=== PATIENT | female | born 1985 | race American Indian/Alaskan Native ===

== ENCOUNTER 2017-07-01 08:14 | Emergency (ER) | payer MEDICAID ==
[2017-05-15 07:47] VITALS: BMI 23.9
[2017-07-01] MEDS ORDERED: Lactated Ringer's 1,000 ML IV SCH (09:00)
--- NOTE | 2017-07-01 09:01 | OBHP ---
Datetime: 07/01/2017 08:55 IP Adm Impression: , intrauterine IP Chief Complaint Other: c/o gush of fluid yesterday and blood on urinattion at 4 am IP Admit Plan: Observation/Evaluation Admit Comment, IP Provider: at 25+weeks came with c/o gush of fluid yesterday afyternoon and bl ood seen on urination x 2 at 4 am and 7 am. c/o pelvic pressure and crampoing. no vb now, +fm, no ctx s. obhx 3 x pmh den med pnv all nda psh scoliosisis soch den sse neg nitraz, neg pooling yellowish whistish disc a/p at 25=weeks r/o uti r/o placental abruption r/oppprom npo/ivf labs ob sono cont popeye and efm cont close observ Pelvic Type - PN: Adequate Extremities - PN: Normal Abdomen - PN: Normal Back - PN: Normal Breast - PN: Not Done Lungs - PN: Normal Heart - PN: Normal Thyroid - PN: Not Done Neurologic - PN: Normal HEENT - PN: Normal General - PN: Normal FHR - Baseline A Provider: 150 Contraction Comments Provider: none Comments, ACOG Physical Exam: gravid,non ten ext no edema,no calf ten sse no fluid,neg nitrzine ve closed EGA AdmitDate IP: 25.4 Vital Signs Provider: Reviewed; Within Normal Limits IP Chief Complaint: Vaginal bleeding NICHD Variability Prov Fetus A: Moderate 6-25bpm NICHD Accel Fetus A IP Provider: 10X10 FHR Category Provider Fetus A: Category I Genitourinary Exam: Normal DTRs - PN: Normal
[2017-07-01 09:26] LABS: HEMATOCRIT 31.2 % (34.0-47.0); MEAN CELL VOLUME 78.8 fL (81.0-99.0); MEAN CORPUSCULAR HEMOGLOBIN 25.6 pg (27.0-31.0); MEAN CORPUSCULAR HGB CONC 32.5 g/dL (33.0-37.0); MEAN PLATELET VOLUME 9.5 fL (7.2-11.7); RED CELL DISTRIBUTION WIDTH 17.8 % (11.5-14.5); WHITE BLOOD COUNT 10.3 K/uL (4.8-10.8)
[2017-07-01 09:38] LABS: RBC URINE < 1 /hpf (0-3); URINE BILIRUBIN NEGATIVE (NEGATIVE); URINE BLOOD NEGATIVE (NEGATIVE); URINE COLOR Yellow (YELLOW); URINE GLUCOSE (UA) NORMAL (Normal); URINE KETONE NEGATIVE (NEGATIVE); URINE LEUKOCYTE ESTERASE 1+ Leu/uL (Negative); URINE PROTEIN NEGATIVE (NEGATIVE); URINE UROBILINOGEN NORMAL mg/dL (0.2-1.0)
[2017-07-01 09:41] LABS: INR 0.9
[2017-07-01 09:45] LABS: WBC URINE 3 /hpf (0-5)
--- NOTE | 2017-07-01 10:23 | US ---
OB , limited Indication: Rule out ROM, rule out placental abruption Comparison: None available Technique: Real-time ultrasound was performed through the pelvis. Findings: There is a single living fetus in cephalic presentation. Anterior placenta. The placenta is not previa. There are no adnexal masses or cysts evident. Limited visualization of the cervix with length approximately 3.1 cm. Limited visualized anatomy with. Measurements and calculations: Fetus has a composite sonographic age of 24 weeks 0 days. This calculation is based on the biparietal diameter, head circumference, abdominal circumference, and femur length. Estimated heart rate 150.2 beats per min. Impression: Single living fetus with a composite sonographic age of 24 weeks 0 days. Estimated heart rate 150.2 beats per min.
--- NOTE | 2017-07-01 10:43 | OBHP ---
Datetime: 07/01/2017 10:41 Admit Comment, IP Provider: pt was seen at bed side. feels better.no vb. lof,+fm ua neg sono cep/ant/wnl no fluid or blood on the ghislaine plan dc home bed rest flagyl 500 mh bid x 7 days no sex /u in clinic on thursday 07/05 FHR - Baseline A Provider: 150 Contraction Comments Provider: none Vital Signs Provider: Reviewed NICHD Variability Prov Fetus A: Moderate 6-25bpm Datetime: 07/01/2017 08:55 EGA AdmitDate IP: 25.4
--- NOTE | 2017-07-01 10:44 | OBDCSUM ---
Datetime: 07/01/2017 10:43 Discharged to, Provider: Home Follow up at, Provider: [facility] Disch Instr Activity: Bedrest Disch Instr Diet: Regular Discharge Diet restrict Prov: bedrest until 07/04/17 Discharge Time: 07/01/2017 10:43 Follow up in weeks, Provider: as scheduled Disch Referrals: None Disch Activity Restrictions: No exercising; No lifting Datetime: 07/01/2017 10:42 Discharged to, Provider: Home Follow up at, Provider: 07/05 Disch Instr Activity: Bedrest Disch Instr Diet: Regular Follow up in weeks, Provider: clinic Disch Activity Restrictions: No sexual activity; Nothing in vagina - [place], tampons, douche Discharge Comment, Provider: dc home bed rest flagyl 500 mh bid x 7 days no sex /u in clinic on thursday 07/05 Discharge Diagnosis Prov Other: 25weeks nst bacterial vaginitis
[2017-07-01 15:10] VITALS: BP 111/72; PULSE 75; RESP 18; TEMP 97.1
== END 2017-07-01 11:09 | disposition home or self-care (01) ==
LOC: C.EROB 08:14
DX: O26.892 Other specified pregnancy related conditions, second trimester (principal); Z3A.25 25 weeks gestation of pregnancy
CPT/HCPCS: 76815; 81001; 85027; 85610; 85730; 99283; J7120

== ENCOUNTER 2017-08-04 00:10 | Observation (INO) | payer MEDICAID ==
[2017-05-15 07:47] VITALS: BMI 23.9
[2017-08-04] MEDS ORDERED: Lactated Ringer's 1,000 ML IV SCH (01:00)
--- NOTE | 2017-08-04 01:20 | OBADHP ---
Datetime: 08/04/2017 01:09 Admit Comment, IP Provider: chief complaint-vaginal bleeding HPI 32 y/o at 30.3 wga with c/o episode of bleeding with blood clots.Patient states that s he felt she had lekaing of some fkuid.she theerafter went to the bathroom.After urinating she wiped a nd she noticed blood on the tissue papers and passed some clots Ptaient also c/o more pelvic pressure denies fever, chills, chest pain, shortness of breath Denies any intercourse denies abdominal trauma course- care with dr paz [facility] denies PSH denies; review of hospital records indicates back surgery OBGYN HX ; ectopic x1 Social hx denies tobacco,alcohol or illicit drug use Exam see exam section A/P 32 y/o at 30.3 wga with c/o vaginal bleeding.on exam small amount fo blood stained discha rge seen in vagina mixed with cottage cheese like discharge.Patent had ultradoudn done 07/01/2017 whi ch showed no placenta previa -check labs -discussed with patient about celestone for lung maturity whoch the patient declined.she was remined of the benefits of celestone incase of early delivery.Pt states that she understands the ris ks but does not wnat to procced with celestone at this point Pelvic Type - PN: Adequate Extremities - PN: Normal Abdomen - PN: Normal Back - PN: Normal Lungs - PN: Normal Heart - PN: Normal Neurologic - PN: Normal General - PN: Normal Contraction Comments Provider: none Comments, ACOG Physical Exam: speculum exam cottage cheese like dischareg seen in vault mixed woth blood stained vaginal discharge cervix closed Gestation - Est Wks by US: 30.3 Pool Provider: Negative Vital Signs Provider: Reviewed; Within Normal Limits IP Chief Complaint: Vaginal bleeding FHR Category Provider Fetus A: Category I Dilatation, Provider: 0 Genitourinary Exam: Normal DTRs - PN: Normal EGA AdmitDate IP: 30.3 IP Adm Impression: , intrauterine IP Admit Plan: Observation/Evaluation Datetime: 07/01/2017 10:41 FHR - Baseline A Provider: 150 NICHD Variability Prov Fetus A: Moderate 6-25bpm Datetime: 07/01/2017 08:55 IP Chief Complaint Other: c/o gush of fluid yesterday and blood on urinattion at 4 am Breast - PN: Not Done Thyroid - PN: Not Done HEENT - PN: Normal NICHD Accel Fetus A IP Provider: 10X10
[2017-08-04 01:32] LABS: BASO % 0.2 % (0.0-2.0); EOS # 0.1 K/uL (0.0-0.7); EOS % 1.3 % (0.0-4.0); HEMATOCRIT 31.9 % (34.0-47.0); LYMPH # 2.2 K/uL (1.0-4.3); LYMPH % 22.9 % (20.0-40.0); MEAN CELL VOLUME 79.2 fL (81.0-99.0); MEAN CORPUSCULAR HGB CONC 32.8 g/dL (33.0-37.0); MEAN PLATELET VOLUME 9.7 fL (7.2-11.7); MONO # 0.9 K/uL (0.0-0.8); MONO % 9.6 % (0.0-10.0); RED CELL DISTRIBUTION WIDTH 16.7 % (11.5-14.5); WHITE BLOOD COUNT 9.6 K/uL (4.8-10.8)
[2017-08-04 01:39] LABS: CHLORIDE 101 mmol/L (98-107)
[2017-08-04 01:40] LABS: POTASSIUM 3.7 mmol/L (3.6-5.2); SODIUM 135 mmol/L (132-148)
[2017-08-04 01:42] LABS: ALB/GLOB RATIO 0.8 (1.0-2.1); ALKALINE PHOSPHATASE 64 U/L (38-126); ALT/SGPT 22 U/L (9-52); AST/SGOT 16 U/L (14-36); BILIRUBIN,TOTAL 0.2 mg/dL (0.2-1.3); BLOOD UREA NITROGEN 7 mg/dL (7-17); CARBON DIOXIDE 22 mmol/L (22-30); GFR AFRICAN-AMERICAN > 60; GLUCOSE,RANDOM 89 mg/dL (65-105); TOTAL PROTEIN 7.4 g/dL (6.3-8.3)
[2017-08-04 01:43] LABS: CALCIUM 8.6 mg/dl (8.6-10.4); RBC URINE < 1 /hpf (0-3); URINE BACTERIA RARE (<OCC); URINE BILIRUBIN NEGATIVE (NEGATIVE); URINE BLOOD 1+ (NEGATIVE); URINE COLOR Yellow (YELLOW); URINE GLUCOSE (UA) NORMAL (Normal); URINE KETONE NEGATIVE (NEGATIVE); URINE LEUKOCYTE ESTERASE 3+ Leu/uL (Negative); URINE PROTEIN NEGATIVE (NEGATIVE); URINE UROBILINOGEN NORMAL mg/dL (0.2-1.0); WBC URINE 9 /hpf (0-5)
[2017-08-04 02:23] LABS: INR 0.9
--- NOTE | 2017-08-04 08:12 | OBPN ---
Datetime: 08/04/2017 08:08 Contraction Comments Provider: none FHR - Baseline A Provider: 130 IP Progress Note Comment: pt was seen at bed side,no pain or vb. feels better ua 3 +le sono placente n plan after feeding her dc home ptl given pohyrstion macrobid 100 mg f/u in 2-3 days Vital Signs Provider: Reviewed; Within Normal Limits NICHD Accel Fetus A IP Provider: 10X10 FHR Category Provider Fetus A: Category I NICHD Variability Prov Fetus A: Moderate 6-25bpm NICHD Decel Fetus A IP Provider: None Datetime: 08/04/2017 01:09 Pool Provider: Negative Gestation - Est Wks by US: 30.3 Dilatation, Provider: 0
--- NOTE | 2017-08-04 08:15 | OBDCSUM ---
Datetime: 08/04/2017 08:12 Discharged to, Provider: Home Follow up at, Provider: 2-3days Follow up in weeks, Provider: clinic Disch Activity Restrictions: Minimize stair-climbing; No sexual activity; Nothing in vagina - Interc ourse, tampons, douche Discharge Comment, Provider: dc home ptl given pohyrstion macrobid 100 mg f/u in 2-3 days Discharge Diagnosis Prov Other: 30weeks nst vaginal bleeding
--- NOTE | 2017-08-04 11:02 | US ---
OB limited/biophysical profile Indication: Vaginal bleeding at 30 weeks Technique: Grayscale, color flow, and M-mode sonographic images of the single live intrauterine were obtained. Comparison: OB , limited ultrasound performed 07/01/17 Findings: There is a single live intrauterine gestation. The fetus is in cephalic position. The placenta is anterior. There is no evidence of previa. There is a low-normal amount of amniotic fluid. The MONIQUE measures 9.4 cm . M-mode imaging demonstrates a heart rate to be 132.3 beats per min. Cervix length measures approximately 3.9 cm. movements 2/2 breathing 2/2 tone 2/2 Amniotic fluid 2/2 Total score impression: 06/01 Impression: Biophysical profile of 8 out of 8. Single live intrauterine in cephalic position with a heart rate of 132.3 beats per min. Low normal MONIQUE measures approximately 9.4 cm.
[2017-08-04 13:36] VITALS: BP 110/66; PULSE 85; RESP 20; O2SAT 100
== END 2017-08-04 09:30 | disposition home or self-care (01) ==
LOC: C.EROB 00:10 → C.4D 01:01
PROVIDERS: ADMIT Student in an Organized Health Care Education/Training Program; ATTEND Student in an Organized Health Care Education/Training Program
DX: O46.93 Antepartum hemorrhage, unspecified, third trimester (principal); Z3A.30 30 weeks gestation of pregnancy
CPT/HCPCS: 76815; 76818; 80053; 80324; 80345; 80346; 80349; 80353; 80358; 80361; 81001; 83992; 85025; 85384; 85610; 85730; 86850; 86900; G0378

== ENCOUNTER 2017-08-21 02:30 | Emergency (ER) | payer MEDICAID ==
[2017-08-21 03:00] VITALS: BMI 26.9
[2017-08-21 03:39] LABS: RBC URINE 1 /hpf (0-3); URINE BILIRUBIN NEGATIVE (NEGATIVE); URINE BLOOD NEGATIVE (NEGATIVE); URINE COLOR Yellow (YELLOW); URINE GLUCOSE (UA) NORMAL (Normal); URINE KETONE NEGATIVE (NEGATIVE); URINE PROTEIN NEGATIVE (NEGATIVE); WBC URINE 3 /hpf (0-5)
[2017-08-21 03:44] LABS: URINE LEUKOCYTE ESTERASE TRACE Leu/uL (Negative)
--- NOTE | 2017-08-21 04:08 | OBHP ---
Datetime: 08/21/2017 04:04 IP Adm Impression: , intrauterine IP Chief Complaint Other: vomiting and diiarrhea IP Admit Plan: Observation/Evaluation Admit Comment, IP Provider: at 32weeks came with c/o vomiting x 4 and diarrhea startrd at midni ght,no ctxs,vb, lof,+fm. pt states no one else is sickobhx 3 x pmh dn med pnv all nkda psh den soch de a/p at 32weks gastorenteritis npo/ivf labs zofran cont popeye and efm cont close observation Pelvic Type - PN: Adequate Extremities - PN: Normal Abdomen - PN: Normal Back - PN: Normal Breast - PN: Normal Lungs - PN: Normal Heart - PN: Normal Thyroid - PN: Normal Neurologic - PN: Normal HEENT - PN: Normal General - PN: Normal FHR - Baseline A Provider: 130 Contraction Comments Provider: none Vital Signs Provider: Reviewed; Within Normal Limits NICHD Variability Prov Fetus A: Moderate 6-25bpm Genitourinary Exam: Normal DTRs - PN: Normal Datetime: 08/04/2017 08:08 NICHD Accel Fetus A IP Provider: 10X10 FHR Category Provider Fetus A: Category I NICHD Decel Fetus A IP Provider: None Datetime: 08/04/2017 01:09 EGA AdmitDate IP: 30.3
[2017-08-21 04:25] LABS: HEMATOCRIT 32.3 % (34.0-47.0); MEAN CELL VOLUME 78.2 fL (81.0-99.0); MEAN CORPUSCULAR HEMOGLOBIN 25.3 pg (27.0-31.0); MEAN CORPUSCULAR HGB CONC 32.3 g/dL (33.0-37.0); MEAN PLATELET VOLUME 9.1 fL (7.2-11.7); RED CELL DISTRIBUTION WIDTH 16.5 % (11.5-14.5); WHITE BLOOD COUNT 15.2 K/uL (4.8-10.8)
[2017-08-21 04:33] LABS: CHLORIDE 100 mmol/L (98-107); POTASSIUM 3.4 mmol/L (3.6-5.2); SODIUM 131 mmol/L (132-148)
[2017-08-21 04:35] LABS: GFR AFRICAN-AMERICAN > 60
[2017-08-21 04:36] LABS: ALB/GLOB RATIO 0.8 (1.0-2.1); ALKALINE PHOSPHATASE 85 U/L (38-126); ALT/SGPT 17 U/L (9-52); AST/SGOT 16 U/L (14-36); BILIRUBIN,DIRECT 0.2 mg/dL (0.0-0.4); BILIRUBIN,TOTAL 0.3 mg/dL (0.2-1.3); BLOOD UREA NITROGEN 7 mg/dL (7-17); CALCIUM 8.6 mg/dl (8.6-10.4); CARBON DIOXIDE 22 mmol/L (22-30); GLUCOSE,RANDOM 90 mg/dL (65-105); TOTAL PROTEIN 7.8 g/dL (6.3-8.3)
[2017-08-21] MEDS ORDERED: Potassium Chloride 20 mEq ER Tab PO SCH (08:00)
[2017-08-21 16:01] VITALS: BP 110/59; PULSE 74; RESP 18; TEMP 98
== END 2017-08-21 11:20 | disposition home or self-care (01) ==
LOC: C.EROB 02:30
DX: O99.613 Diseases of the digestive system complicating pregnancy, third trimester (principal); Z3A.32 32 weeks gestation of pregnancy; K52.9 Noninfective gastroenteritis and colitis, unspecified
CPT/HCPCS: 80053; 81001; 82248; 85027; 96374; 99283; J2405

== ENCOUNTER 2017-10-09 13:16 | Inpatient (IN) | payer MEDICAID ==
[2017-09-28 00:12] VITALS: BMI 29.0
--- NOTE | 2017-10-09 16:08 | US ---
Limited obstetrical ultrasound History: Decreased movements. Comparison: Pelvic ultrasound dated 08/04/2017 Technique: Real-time sonography was performed through the pelvis. Findings: Please note this was a limited study for viability purposes only. Dedicated anatomic survey at an interval date is recommended if there is concern for possible anomalies. Biophysical profile of 06/01 with breathing, body movement, tone, and amniotic fluid noted. Estimated gestational age by LMP of 39 weeks and 3 days. Estimated weight of 3312 grams. Cervix is somewhat short measuring 2.6 centimeters. Anterior fundal placenta. Cephalic presentation. heart rate of 146 beats per minute. Mean ultrasound age of approximately 36 weeks and 6 days. Abdominal circumference measures 35.2 centimeters corresponding to a gestational age of 39 weeks and 1 day. Femur length measures 7.3 centimeters corresponding to a gestational age of 37 weeks and 2 days. Biparietal diameter measures 8.7 centimeters corresponding to a gestational age of 35 weeks and 1 day, please note this is somewhat diminutive in comparison to abdominal circumference and femur length measurements and estimated gestational age. Head circumference measures 31.8 centimeters corresponding to a gestational age of 32 weeks and 6 days, please note this is somewhat diminutive in comparison to abdominal circumference and femur length measurements and estimated gestational age. Bilateral ovaries not well visualized. Impression: 1. Limited study for viability purposes only. Please note dedicated separate anatomic survey is recommended if clinically indicated. 2. Biophysical profile score of 06/01 as described above. 3. Estimated weight of 3312 grams. 4. Somewhat shortened appearance of the cervix measuring up to 2.6 centimeters. Clinical correlation. 5. Please note the biparietal diameter and head circumference corresponded to a gestational age of approximately 35 weeks and 1 day and 32 weeks and 6 days respectively. This appears to be somewhat diminutive in comparison to abdominal circumference and femur length measurements and estimated gestational ages for those anatomical parts respectively. Clinical correlation.
[2017-10-09] MEDS ORDERED: Nalbuphine 20 mg/ml Inj (1 ml) IVP PRN (16:45)
[2017-10-09] MEDS ORDERED: Dextrose 5%/Lactated Ringer's 1,000 ML IV SCH (16:45)
--- NOTE | 2017-10-09 17:13 | OBADHP ---
Datetime: 10/09/2017 14:27 IP Adm Impression Other: Decreased movement Admit Comment, IP Provider: Patient seen and examined 1334 hours 32 y.o. , LMP unsure, JONAH 01/12/17 EGA 39w 2d by sono 04/13/17 at 13w 5d, c/o ctx - onset approx 1900 hours, every 5minutes, pain scale 8/10. "I got some rest" then stronger contractio ns this morning starting 0700 hours, every 10 minutes, similar pain scale. Reports decreased mo vement since 0700 hours until assessment here on L_D. Denies LOF. (+) vaginal spotting 2 days ago. L ast had sexual intercourse "8 months ago". care: [facility] - noted for anemia P Ob: x 3: 2003, male, 8lb 12oz, [facility] 2006, male, 8lb 1oz, [place] [facility]. 2012, fema le, 7lb 14oz, 37 weeks, [facility]. 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 Denies h/o STIs or abnormal Pap PMH: 1) 1989, S/P fall/accident with neck injury. 2) scoliosis PSH: 1) 1989, surgery on 1st and 2nd cervical vertebrae - was in hospital 8-9 months; 2) 1995; fus ed vertebrae because of scoliosis, [facility]. 3) 2005, D_C NKDA Meds: PNV - QD; Calcium - 2 tab QD; B50 complex "for my nerves" - QD; Iron - QOD Soc Hx: Prev tobacco use: 2-3 cig/day since age 19. Stops with each ; last smoked 12/2016 . Denies illicit drug use. Soc EtOH use, prior to . Lives with FOB and her daughter; togeth er x 5 years. x 5 years. 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 Last worked 08/2017. Fam Hx: Mother alive 64 y.o. Father alive 60 y.o. - both, no med issues. No known fam h/o cancer P.E.: as above. WD in NAD. Awake, alert, oriented totime, person and place. Pleasant and alfredo ative Assessment: 32 y.o. P3013, 39w 2d, not in labor. Decreased FM - responded with ingestion of ice a nd stimulation. Category 1 tracing/ NST reactive. Clinically stable. Plan: 1) OB USG/BPP 2) Observe Addendum: spoke with MFM, Dr. Drew at approximately 1625 hours - after reviewing official OB rep ort from ultrasound with discrepancy in HC at 32 wk and AC at 35wk, and low MONIQUE in a proven 39+ weeks possbile asymmetric IUGR, induction of labor is recommended. This was discussed with the patient w awa expressed an understanding and agrees. Plan: 1) Admit 2) NPO 3) IVFs 4) Continuous EFM 5) Admission labs 6) Cervidil 7) IV medications for pain (h/o scoliosis - patient does not want epidural) 8) Anticipate vaginal delivery Pelvic Type - PN: Adequate Extremities - PN: Normal Abdomen - PN: Normal Back - PN: Normal Breast - PN: Not Done Lungs - PN: Normal Heart - PN: Normal Thyroid - PN: Not Done Neurologic - PN: Normal HEENT - PN: Normal General - PN: Normal Presentation-Admit: Vertex FHR - Baseline A Provider: 145 Contraction Comments Provider: none Comments, ACOG Physical Exam: Abdomen: gravid. Soft. Non tender. FM visualized during evaluation. (p atient verbalized sensing this) All other systems reviewed and are negative Gestation - Est Wks by US: 39w 2d IP Hx Assessment: The History has been Reviewed and is Current Vital Signs Provider: Reviewed IP Chief Complaint: Uterine contractions NICHD Variability Prov Fetus A: Moderate 6-25bpm NICHD Accel Fetus A IP Provider: 15X15 FHR Category Provider Fetus A: Category I NICHD Decel Fetus A IP Provider: None Dilatation, Provider: 1 Effacement, Provider: long/thick Station, Provider: -4 Genitourinary Exam: Normal DTRs - PN: Not Done EGA AdmitDate IP: 39.2 IP Adm Impression: Term, intrauterine ; No Active Labor; Intact Membranes IP Admit Plan: Admit to unit Datetime: 08/21/2017 04:04 IP Chief Complaint Other: vomiting and diiarrhea
[2017-10-09 17:30] VITALS: O2SAT 98
[2017-10-09 17:42] LABS: BASO % 0.4 % (0.0-2.0); EOS # 0.1 K/uL (0.0-0.7); EOS % 0.9 % (0.0-4.0); HEMATOCRIT 34.1 % (34.0-47.0); LYMPH % 17.8 % (20.0-40.0); MEAN CELL VOLUME 74.9 fL (81.0-99.0); MEAN CORPUSCULAR HEMOGLOBIN 23.9 pg (27.0-31.0); MEAN CORPUSCULAR HGB CONC 31.9 g/dL (33.0-37.0); MEAN PLATELET VOLUME 9.5 fL (7.2-11.7); MONO % 8.7 % (0.0-10.0); RED CELL DISTRIBUTION WIDTH 17.8 % (11.5-14.5); WHITE BLOOD COUNT 11.1 K/uL (4.8-10.8)
[2017-10-09] MEDS ORDERED: Lactated Ringer's 1,000 ML IV SCH (17:45)
[2017-10-09 17:49] LABS: RBC URINE < 1 /hpf (0-3); URINE BACTERIA RARE (<OCC); URINE BILIRUBIN NEGATIVE (NEGATIVE); URINE BLOOD NEGATIVE (NEGATIVE); URINE COLOR Yellow (YELLOW); URINE GLUCOSE (UA) NORMAL (Normal); URINE KETONE NEGATIVE (NEGATIVE); URINE LEUKOCYTE ESTERASE 2+ Leu/uL (Negative); URINE PROTEIN 1+ mg/dL (NEGATIVE); URINE UROBILINOGEN NORMAL mg/dL (0.2-1.0); WBC URINE 17 /hpf (0-5)
[2017-10-09 17:55] LABS: ALB/GLOB RATIO 1.1 (1.0-2.1); ALKALINE PHOSPHATASE 138 U/L (38-126); ALT/SGPT 30 U/L (9-52); AST/SGOT 18 U/L (14-36); BILIRUBIN,TOTAL 0.4 mg/dL (0.2-1.3); BLOOD UREA NITROGEN 3 mg/dL (7-17); CALCIUM 8.2 mg/dl (8.6-10.4); CARBON DIOXIDE 25 mmol/L (22-30); CHLORIDE 99 mmol/L (98-107); GFR AFRICAN-AMERICAN > 60; GLUCOSE,RANDOM 93 mg/dL (65-105); POTASSIUM 3.5 mmol/L (3.6-5.2); SODIUM 133 mmol/L (132-148); TOTAL PROTEIN 7.3 g/dL (6.3-8.3)
--- NOTE | 2017-10-09 18:14 | OBPN ---
Datetime: 10/09/2017 18:10 Contraction Comments Provider: none FHR - Baseline A Provider: 150 Gestation - Est Wks by US: 39w 2d IP Progress Note Comment: Cervidil placed in posterior vaginal vault at approximately 1753 hours Assessment: 32 y.o. P3013, 39w 2d, IOL for possible IUGR. Category 1 tracing. Clinically stable. Plan: 1) Observe for cervical response 2) Anticiapte vaginal delivery Vital Signs Provider: Reviewed; Within Normal Limits NICHD Accel Fetus A IP Provider: 15X15 NICHD Variability Prov Fetus A: Moderate 6-25bpm Dilatation, Provider: 1 Effacement, Provider: long Station, Provider: -4 NICHD Decel Fetus A IP Provider: None Datetime: 10/09/2017 14:27 Presentation-Admit: Vertex FHR Category Provider Fetus A: Category I
[2017-10-09] MEDS ORDERED: Nalbuphine 20 mg/ml Inj (1 ml) ONE (20:55)
[2017-10-10] MEDS: Nalbuphine 20 mg/ml Inj (1 ml) IVP SCH ×2 (01:49→06:24)
[2017-10-10] MEDS ORDERED: Nalbuphine 20 mg/ml Inj (1 ml) ONE (06:18)
[2017-10-10] MEDS ORDERED: Oxytocin 30 UNIT 30 UNITS/500 ML BAG IV SCH ×2 (08:00→11:15)
[2017-10-10] MEDS ORDERED: Oxytocin 30 UNIT 30 UNITS/500 ML BAG IV ONE (08:21)
[2017-10-10] MEDS ORDERED: Lidocaine 2% Inj (20ml) ONE (10:28)
[2017-10-10] MEDS ORDERED: Lidocaine 2% Inj (20ml) IJ ONE (10:30)
--- NOTE | 2017-10-10 10:35 | OBPN ---
Datetime: 10/10/2017 10:31 IP Progress Impression: Normal progression of labor IP Informed Consent Obtain: Vaginal Delivery IP Progress Plan: Continue present management Membranes, Provider: Ruptured Amniotic Fluid Color, Provider: Clear FHR - Baseline A Provider: 150 Gestation - Est Wks by US: 39.3 Presentation-Admit: Vertex IP Progress Note Comment: pt seen and examined c/o pressure VS see above V:E /-2 Arom clear A/P P3 @ 39.3 wks GA in active labor -s/p IV pain medicaion, townsend snot deisre epidural anestesha -pticon as per protocol -oygen, left lateral ivh -cont current managment Vital Signs Provider: Reviewed NICHD Variability Prov Fetus A: Moderate 6-25bpm Dilatation, Provider: 6 Effacement, Provider: 80 Station, Provider: -2 NICHD Decel Fetus A IP Provider: Variable
--- NOTE | 2017-10-10 11:00 | OBDS ---
MATERNAL INFORMATION Provider Comments: pt was fully dilated and pushing, atruamtic, spontaneous delivery of head, no nuc carlos manuel cord noted , followed by atruamatic, spontnaneous delivery of anterior folloewd by posterior shou lder followed by deliveyr of body. both oral and nasal passages of the baby were bulb suctioned. ubmi lcal cord was clamped adn cut. 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 Cord blood adn cord gases collect ed adn sent x 2. Spontaneous delveyr of intact placenta with membranes. fundus firm. second dgree per ienal laceration noted and repaired with 2-0 chormic. Good hemostasis, no complcatins. live female in geovanny apgars 9,9 weight of 3335 grams. ebl 200 ml no ocmplicatoins LABOR SUMMARY EDC: 10/14/2017 00:00 No. Babies in Womb: 1 LABOR INFORMATION Cervical Ripening Agents: Cervidil (Annotations: cervidil removed) Group B Beta Strep: Negative MEMBRANES Membranes Rupture Method: Artificial Rupture of Membranes: 10/10/2017 10:20 Amniotic Fluid Color: Clear Amniotic Fluid Amount: Moderate Amniotic Fluid Odor: Normal VAGINAL DELIVERY Laceration Repair Note: second degree perineal laceatoined repaired with 2-0 chormic Count Comment: yes INFANT INFORMATION BABY A Gestational Age at Delivery: 39.3 Gestational Status: Term Infant Sex: Female IDENTIFICATION/MEDS BABY A ID Band Number: [id number] Sensor Number: [id number]
[2017-10-10] MEDS: Oxycodone/Acetaminophen 5/325 mg Tab PO PRN (19:10)
[2017-10-11] MEDS: Oxycodone/Acetaminophen 5/325 mg Tab PO PRN ×3 (00:42→17:43)
[2017-10-11 08:13] LABS: BASO # 0.1 K/uL (0.0-0.2); BASO % 0.4 % (0.0-2.0); EOS # 0.2 K/uL (0.0-0.7); EOS % 1.3 % (0.0-4.0); HEMATOCRIT 29.9 % (34.0-47.0); LYMPH # 2.2 K/uL (1.0-4.3); MEAN CELL VOLUME 75.5 fL (81.0-99.0); MEAN CORPUSCULAR HEMOGLOBIN 24.1 pg (27.0-31.0); MEAN CORPUSCULAR HGB CONC 31.9 g/dL (33.0-37.0); MEAN PLATELET VOLUME 9.9 fL (7.2-11.7); MONO # 0.8 K/uL (0.0-0.8); MONO % 6.2 % (0.0-10.0); RED CELL DISTRIBUTION WIDTH 17.6 % (11.5-14.5); WHITE BLOOD COUNT 12.8 K/uL (4.8-10.8)
[2017-10-12] MEDS ORDERED: Potassium Chloride 20 mEq/15 ml LIQ UD PO ONE (07:45)
--- NOTE | 2017-10-12 08:36 | OBPPN ---
Datetime: 10/12/2017 08:33 PP Pain Prov: Within normal limits PP Nausea Prov: Denies PP Flatus Prov: Yes PP Heart Prov: Normal PP Lungs Prov: Normal PP Abdomen/Uterus Prov: Normal PP Lochia Prov: Normal PP Extremities Prov: Normal PP C/S Incision Prov: Not Applicable PP Progress Prov: Normal PP Progress Note Prov: S-patient reports that her pain is well controlled.denies nausea, vomiting, c hest pain, shortness of breath Ambulating and voiding without difficulty O-VSS Afebrile Fundus firm and below umbilicus extremities no calf tenderness A/P Patient s/p vaginal delivery PPD2 doing well -discharge -follow up in [place] [facility] in 6 weeks Vital Signs Provider PP: Reviewed; Within Normal Limits Datetime: 10/11/2017 17:50 PP BM Prov: No PP Comments Phys Exam Prov: Abdomen: Soft, fundus is firm and one finger breath below the umbilicus PP Impression Prov: Normal progression PP Plan Prov: Continue present management
--- NOTE | 2017-10-12 08:39 | OBDCSUM ---
Datetime: 10/12/2017 08:35 Discharged to, Provider: Home Follow up at, Provider: clinic Disch Instr Diet: Regular Discharge Instructions, Provider: Routine instructions given Discharge Diagnosis, Provider: Term Delivered Discharge Time: 10/12/2017 08:35 Follow up in weeks, Provider: 6 weeks Discharge Comment, Provider: go to er if you have fever, severe pain, heavy bleeidng or any other pr oblems Discharge Diagnosis Prov Other: s/p vaginal delivery
[2017-10-12 10:04] VITALS: BP 118/76; PULSE 77; RESP 18; TEMP 97.7
--- NOTE | 2017-10-13 21:35 | OBPPN ---
Datetime: 10/11/2017 17:50 PP Progress Note Prov: Patient was seen and examined at bedside. Patient states that she is doing we ll and has no complaints. Patient's pain is moderate pain. Patient admits to moderate lochia, passing flatus, urinating without difficulty. Patient is tolerating diet and ambulating. Patient denies ches t pain, sob, palpitations, fever, chills, nausea and vomiting. Patient is breast feeding VS: BP: 109/68 Temp: 97.5, HR: 103 Physical Examination: Gen: NAD, AAOX3 Cardio: RRR, normal S1, S2 Pulm: CTA bilaterally Abdomen: Soft, + BS, fundus is one finger breadth below the umbilicus Ext: No edema, no cyanosis and no clubbing Labs: 11.1>10.9/34.1<207 12.8>9.6/29.2<180 A+, Rubella immune A/P: Patient is a 32 year old at 39 weeks and 2 days who is now a , PPD#1 1. Afebrile, stable 2. Pain control with motrin and percocet 3. Encourage ambulation and hydration 4. Encourage breast feeding 5. Continue routine post- care 6. Anticipate discharge tomorrow 7. Plans discussed with attending Carolynn Hunter DO, PGY-1 Attending Note: patient seen by me. I agree with the documentation of events as described above. Patient is clinically stable. Plan: 1) as above.
== END 2017-10-12 13:20 | disposition home or self-care (01) | DRG 373 ==
LOC: C.EROB 13:16 → C.4D 16:36 → C.4M 10-10 14:00
PROVIDERS: ADMIT Obstetrics & Gynecology; ATTEND Obstetrics & Gynecology
PROC: 10E0XZZ Delivery of Products of Conception, External Approach (ICD-10-PCS; principal; 2017-10-10)
PROC: 0KQM0ZZ Repair Perineum Muscle, Open Approach (ICD-10-PCS; 2017-10-10)
PROC: 3E0P7VZ Introduction of Hormone into Female Reproductive, Via Natural or Artificial Opening (ICD-10-PCS; 2017-10-10)
DX: O36.8130 Decreased fetal movements, third trimester, not applicable or unspecified (principal); F17.210 Nicotine dependence, cigarettes, uncomplicated; O99.02 Anemia complicating childbirth; O99.334 Smoking (tobacco) complicating childbirth; O70.1 Second degree perineal laceration during delivery; Z37.0 Single live birth; Z3A.38 38 weeks gestation of pregnancy; Z3A.39 39 weeks gestation of pregnancy; Z98.1 Arthrodesis status

== ENCOUNTER 2018-05-22 10:25 | Emergency (ER) | payer MEDICAID ==
[2018-05-22 10:26] VITALS: BMI 29.0
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
[2018-05-22 11:54] VITALS: BP 103/72; PULSE 68; RESP 16; TEMP 98.4; O2SAT 100
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
== END 2018-05-22 11:56 | disposition home or self-care (01) ==
LOC: C.ER 10:25
DX: S40.012A Contusion of left shoulder, initial encounter (principal); V49.50XA Passenger injured in collision with unspecified motor vehicles in traffic accident, initial encounter

== ENCOUNTER 2018-09-19 10:10 | Emergency (ER) | payer MEDICAID ==
[2018-09-19 10:10] VITALS: BMI 29.0
[2018-09-19 10:52] LABS: HCG,QUALITATIVE URINE NEGATIVE (NEGATIVE)
[2018-09-19 10:55] LABS: BASO % 0.6 % (0.0-2.0); EOS # 0.1 K/uL (0.0-0.7); EOS % 0.8 % (0.0-4.0); LYMPH # 1.5 K/uL (1.0-4.3); LYMPH % 18.4 % (20.0-40.0); MEAN CELL VOLUME 80.8 fL (81.0-99.0); MEAN CORPUSCULAR HEMOGLOBIN 26.5 pg (27.0-31.0); MEAN CORPUSCULAR HGB CONC 32.8 g/dL (33.0-37.0); MEAN PLATELET VOLUME 9.5 fL (7.2-11.7); MONO # 0.6 K/uL (0.0-0.8); MONO % 6.9 % (0.0-10.0); NEUT % 73.3 % (50.0-75.0); RBC 4.52 Mil/uL (3.80-5.20); RED CELL DISTRIBUTION WIDTH 15.1 % (11.5-14.5); SQUAMOUS EPITHIAL 6 /hpf (0-5); URINE BACTERIA RARE (<OCC); URINE BILIRUBIN NEGATIVE (NEGATIVE); URINE BLOOD 3+ (NEGATIVE); URINE CLARITY Clear (Clear); URINE COLOR Yellow (YELLOW); URINE GLUCOSE (UA) NORMAL (Normal); URINE LEUKOCYTE ESTERASE TRACE Leu/uL (Negative); URINE PROTEIN NEGATIVE (NEGATIVE); WHITE BLOOD COUNT 8.2 K/uL (4.8-10.8)
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
--- NOTE | 2018-09-19 12:59 | US ---
Date of service: 09/19/2018 HISTORY: pelvic pain, heavy bleeding COMPARISON: None available. TECHNIQUE: Transabdominal and transvaginal FINDINGS: UTERUS: Measures 9.1 x 5.0 x 5.8 cm. Normal in size and appearance. No fibroid or other mass lesion seen. ENDOMETRIUM: Measures 5 mm in diameter. No intrauterine gestation identified. CERVIX: No cervical abnormality identified. RIGHT OVARY: Measures 2.7 x 1.8 x 3.0 cm. No solid mass. Normal flow. LEFT OVARY: Measures 2.9 x 1.3 x 2.9 cm. No solid mass. Normal flow. FREE FLUID: No significant free fluid noted. OTHER FINDINGS: None. IMPRESSION: Unremarkable pelvic ultrasound.
[2018-09-19 13:54] VITALS: BP 106/75; PULSE 77; RESP 18; TEMP 98.5; O2SAT 98
== END 2018-09-19 13:58 | disposition home or self-care (01) ==
LOC: C.ER 10:10
DX: N93.9 Abnormal uterine and vaginal bleeding, unspecified (principal); M41.9 Scoliosis, unspecified; R01.1 Cardiac murmur, unspecified